=== PATIENT | male | born 2005 | race Caucasian/White ===

== ENCOUNTER 2025-02-03 07:53 | Emergency (ER) | payer OTHER ==
[~2025-02-03] VITALS: Ht 175.3 cm; Wt 49.9 kg
[2025-02-03 08:02] VITALS: BP 119/74; TEMP 98.1
[2025-02-03] MEDS ORDERED: SULF1TAB48 PO (08:21)
[2025-02-03] MEDS ORDERED: CEFA500C PO (08:21)
[2025-02-03] MEDS ORDERED: CEFTRIAXONE 1 G VIAL ONE (08:26)
[2025-02-03] MEDS ORDERED: ACETAMINOPHEN 325 MG TABLET ONE (08:26)
[2025-02-03] MEDS ORDERED: LIDOCAINE 1% INJ 50 ML MDV IJ ONE (08:27)
[2025-02-03] MEDS: CEFTRIAXONE 1 G VIAL IM ONE (08:46)
[2025-02-03] MEDS: ACETAMINOPHEN 325 MG TABLET PO ONE (08:47)
[2025-02-03 08:51] VITALS: O2SAT 98
== END 2025-02-03 08:52 | disposition home or self-care (01) ==
LOC: ER 07:59
DX: L98.9 Disorder of the skin and subcutaneous tissue, unspecified (principal); Z86.14 Personal history of Methicillin resistant Staphylococcus aureus infection
CPT/HCPCS: 99283; 96372; J3490; J0696